=== PATIENT | female | born 1940 | race Caucasian/White ===

== ENCOUNTER 2017-11-22 11:00 | Emergency (ER) | payer MEDICARE ==
[~2017-11-22] VITALS: Ht 165.1 cm; Wt 81.0 kg
[~2017-11-22 11:00] MED LIST: CEPH500 PO; HYDR-2768 PO
[2017-11-22 11:02] VITALS: BP 185/101; PULSE 72; RESP 16; TEMP 97.6; O2SAT 95
[2017-11-22] MEDS ORDERED: HYDR25TA5 PO (11:15)
[2017-11-22] MEDS ORDERED: SODIUM CHLORIDE 0.9% FLUSH 10 ML FLUSH IV FLUSH PRN (11:45)
[2017-11-22 12:03] VITALS: RESP 16; O2SAT 98
[2017-11-22 12:05] LABS: AUTOMATED NEUTROPHIL # 3.7 TH/MM3 (1.8-7.7); BASOPHIL % 0.7 % (0.0-2.0); EOSINOPHIL # 0.4 TH/MM3 (0-0.4); EOSINOPHIL % 6.8 % (0.0-4.0); HEMATOCRIT 44.4 % (35.0-46.0); HEMOGLOBIN 14.3 GM/DL (11.6-15.3); LYMPH % 21.7 % (9.0-44.0); LYMPHOCYTE # 1.3 TH/MM3 (1.0-4.8); MEAN CELL VOLUME 94.8 FL (80.0-100.0); MEAN CORPUSCULAR HEMOGLOBIN 30.5 PG (27.0-34.0); MEAN CORPUSCULAR HGB CONC 32.2 % (32.0-36.0); MEAN PLATELET VOLUME 7.7 FL (7.0-11.0); MONO % 7.3 % (0.0-8.0); MONOCYTE # 0.4 TH/MM3 (0-0.9); NEUT % 63.5 % (16.0-70.0); PLATELET COUNT 281 TH/MM3 (150-450); RED BLOOD COUNT 4.69 MIL/MM3 (4.00-5.30); RED CELL DISTRIBUTION WIDTH 12.4 % (11.6-17.2); WHITE BLOOD COUNT 5.8 TH/MM3 (4.0-11.0)
--- NOTE | 2017-11-22 12:06 | PD ---
HPI Chief Complaint: Dizziness Time Seen by Provider: 11:12 Travel History International Travel<30 days: No Contact w/Intl Traveler<30days: No Traveled to known affect area: No History of Present Illness HPI pt is a very pleasant 77 y.o female who presents to the ED with a cc of Dizziness. Pt states that she has been having dizziness since last Wednesday. Reports that last Wednesday she took some "caffeine powder" and immediately after started getting a sensation that her surrounding is moving. Her dizziness was initially waxing and waning but is now constant. She went to her PCP several days ago and was given Meclizine. She states that Meclizine has not helped her and has made her vomit X 1. Per , she has also been having difficulty with her balance. Denies any ringing in ear, decrease hearing, palpitations, H/A , nausea, vomiting. States symptoms are intermittent, moderate, so she will mild nausea without vomiting, context as above. History Past Medical History Influenza Vaccination: Yes Social History Alcohol Use: Yes (OCC WINE) Tobacco Use: No (QUIT 16 YRS) Allergies-Medications (Allergen,Severity, Reaction): Coded Allergies: No Known Allergies (Unverified Adverse Reaction, Unknown, 11/22/17) Reported Meds & Prescriptions Reported Meds & Active Scripts Active Valium (Diazepam) 2 Mg Tab 2 Mg PO BID PRN Keflex (Cephalexin) 500 Mg Cap 500 Mg PO Q6H 3 Days Reported Hydrochlorothiazide 25 Mg Tab 25 Mg PO DAILY Review of Systems Except as stated in HPI: all other systems reviewed are Neg Physical Exam Narrative GENERAL: Well-developed well-nourished, no obvious distress peer SKIN: Warm and dry. HEAD: Atraumatic. Normocephalic. EYES: Pupils equal and round. No scleral icterus. No injection or drainage. ENT: No nasal bleeding or discharge. Mucous membranes pink and moist. TMs clear bilaterally. Oropharynx clear moist NECK: Trachea midline. No JVD. CARDIOVASCULAR: Regular rate and rhythm. RESPIRATORY: No accessory muscle use. Clear to auscultation. Breath sounds equal bilaterally. GASTROINTESTINAL: Abdomen soft, non-tender, nondistended. Hepatic and splenic margins not palpable. MUSCULOSKELETAL: Extremities without clubbing, cyanosis, or edema. No obvious deformities. NEUROLOGICAL: Awake and alert. Cranial nerves II through XII are grossly intact and nonfocal, 5 out of 5 strength in all 4 extremities, normal speech, cerebellar testing with [id number] and heel baltazar testing negative, ambulates with an even narrow-base gait. No ataxia observed PSYCHIATRIC: Appropriate mood and affect; insight and judgment normal. Data Data Last Documented VS Vital Signs Date Time Temp Pulse Resp B/P (MAP) Pulse Ox O2 Delivery O2 Flow Rate FiO2 11/22/17 14:56 11/22/17 13:06 68 16 98 Room Air 11/22/17 11:02 97.6 Orders Orders Electrocardiogram (11/22/17 11:43) Complete Blood Count With Diff (11/22/17 11:43) Comprehensive Metabolic Panel (11/22/17 11:43) Prothrombin Time / Inr (Pt) (11/22/17 11:43) Act Partial Throm Time (Ptt) (11/22/17 11:43) Troponin I (11/22/17 11:43) Urinalysis - C+S If Indicated (11/22/17 11:43) Blood Glucose (11/22/17 11:43) Ecg Monitoring (11/22/17 11:43) Iv Access Insert/Monitor (11/22/17 11:43) Oximetry (11/22/17 11:43) Sodium Chloride 0.9% Flush (Ns Flush) (11/22/17 11:45) Mri Brain W/O Contrast (11/22/17 ) Urine Culture (11/22/17 14:24) Ed Discharge Order (11/22/17 14:50) Labs Laboratory Tests Test 11/22/17 11:50 11/22/17 14:24 White Blood Count 5.8 TH/MM3 Red Blood Count 4.69 MIL/MM3 Hemoglobin 14.3 GM/DL Hematocrit 44.4 % Mean Corpuscular Volume 94.8 FL Mean Corpuscular Hemoglobin 30.5 PG Mean Corpuscular Hemoglobin Concent 32.2 % Red Cell Distribution Width 12.4 % Platelet Count 281 TH/MM3 Mean Platelet Volume 7.7 FL Neutrophils (%) (Auto) 63.5 % Lymphocytes (%) (Auto) 21.7 % Monocytes (%) (Auto) 7.3 % Eosinophils (%) (Auto) 6.8 % Basophils (%) (Auto) 0.7 % Neutrophils # (Auto) 3.7 TH/MM3 Lymphocytes # (Auto) 1.3 TH/MM3 Monocytes # (Auto) 0.4 TH/MM3 Eosinophils # (Auto) 0.4 TH/MM3 Basophils # (Auto) 0.0 TH/MM3 CBC Comment DIFF FINAL Differential Comment Prothrombin Time 9.9 SEC Prothromb Time International Ratio 1.0 RATIO Activated Partial Thromboplast Time 26.5 SEC Blood Urea Nitrogen 22 MG/DL Creatinine 0.98 MG/DL Random Glucose 100 MG/DL Total Protein 7.2 GM/DL Albumin 3.3 GM/DL Calcium Level 9.0 MG/DL Alkaline Phosphatase 117 U/L Aspartate Amino Transf (AST/SGOT) 67 U/L Alanine Aminotransferase (ALT/SGPT) 68 U/L Total Bilirubin 1.5 MG/DL Sodium Level 140 MEQ/L Potassium Level 4.5 MEQ/L Chloride Level 103 MEQ/L Carbon Dioxide Level 32.3 MEQ/L Anion Gap 5 MEQ/L Estimat Glomerular Filtration Rate 55 ML/MIN Troponin I LESS THAN 0.02 NG/ML Urine Color YELLOW Urine Turbidity CLEAR Urine pH 7.0 Urine Specific [place] LESS/EQUAL 1.005 Urine Protein NEG mg/dL Urine Glucose (UA) NEG mg/dL Urine Ketones NEG mg/dL Urine Occult Blood NEG Urine Nitrite NEG Urine Bilirubin NEG Urine Urobilinogen 0.2 MG/DL Urine Leukocyte Esterase SMALL Urine RBC 0-3 /hpf Urine WBC 9-14 /hpf Urine Squamous Epithelial Cells 6-8 /hpf Urine Bacteria FEW /hpf Microscopic Urinalysis Comment CULTURE INDICATED MDM Medical Decision Making Medical Screen Exam Complete: Yes Emergency Medical Condition: Yes Differential Diagnosis BPV, Menier's disease, cerebellar ischemia, Intra cranial mass; Arrhythmia, carotid stenosis, Dehydration Narrative Course Patient room to the emergency department, I think her symptoms are more in line with BPPV however she has not had any response to meclizine and at her age I think would benefit from MRI to exclude cerebellar disease. Last 24 hours Impressions Brain MRI 11/22/17 0000 Signed Impressions: CONCLUSION: 1. Mild chronic changes with some periventricular and scattered deep white mat ter tract small vessel ischemic demyelination. 2. Nothing acute. Patient also has minimal evidence for urinary tract infection, discussed symptomatic management return to ED criteria follow-up with a primary care physician. She verbalized understanding and agreement. She was offered a small prescription for Valium and she is flying in the next few weeks and wanted to make sure it was okay for her to do so. Discussed the addictive nature of this medication and that will make her very drowsy. Diagnosis Primary Impression: BPPV (benign paroxysmal positional vertigo) Qualified Codes: H81.10 - Benign paroxysmal vertigo, unspecified ear Additional Impression: UTI (urinary tract infection) Qualified Codes: N39.0 - Urinary tract infection, site not specified Med/Other Pt SpecificInfo: Prescription(s) given Scripts Diazepam (Valium) 2 Mg Tab 2 MG PO BID Y for VERTIGO, #12 TAB 0 Refills Prov: Jaret Rivera MD 11/22/17 Cephalexin (Keflex) 500 Mg Cap 500 MG PO Q6H for Infection for 3 Days, #12 CAP 0 Refills Prov: Jaret Rivera MD 11/22/17 Disposition: 01 DISCHARGE HOME Condition: Stable Jaret Rivera MD Nov 22, 2017 12:06
[2017-11-22 12:13] LABS: CHLORIDE 103 MEQ/L (98-107); SODIUM (NA) 140 MEQ/L (136-145)
[2017-11-22 12:17] LABS: ALBUMIN 3.3 GM/DL (3.4-5.0); BICARBONATE 32.3 MEQ/L (21.0-32.0); BLOOD UREA NITROGEN 22 MG/DL (7-18); GLUCOSE,RANDOM 100 MG/DL (74-106)
[2017-11-22 12:18] LABS: PROTHROMBIN TIME - PATIENT 9.9 SEC (9.8-11.6)
[2017-11-22 12:20] LABS: ALT (GPT) 68 U/L (10-53); AST (GOT) 67 U/L (15-37); CREATININE 0.98 MG/DL (0.50-1.00); GLOMERULAR FILTRATION RATE 55 ML/MIN (>89)
[2017-11-22 12:22] LABS: TOTAL BILIRUBIN ADULT 1.5 MG/DL (0.2-1.0); TOTAL PROTEIN 7.2 GM/DL (6.4-8.2)
[2017-11-22 12:23] LABS: ALKALINE PHOSPHATASE 117 U/L (45-117)
[2017-11-22 12:25] LABS: TROPONIN I LESS THAN 0.02 NG/ML (0.02-0.05)
[2017-11-22 13:06] VITALS: BP 146/88; PULSE 68; RESP 16; O2SAT 98
--- NOTE | 2017-11-22 13:52 | RADRPT ---
EXAM DATE: 11/22/2017 1:47 PM EDT AGE/SEX: 77 years / Female INDICATIONS: CVA. Vertigo. CLINICAL DATA: This is the patient's initial encounter. Patient reports that signs and symptoms have been present for 4 - 6 days and indicates a pain score of 0/10. MEDICAL/SURGICAL HISTORY: Hypertension. Chronic obstructive pulmonary disease. Tonsillectomy. Inguinal hernia repair. COMPARISON: No prior [facility] exams available for comparison. TECHNIQUE: Multiplanar, multisequence examination of the brain was performed without contrast. FINDINGS: Cerebrum: The ventricles are normal for age. No evidence of midline shift, mass lesion, hemorrhage or acute infarction. No extraaxial fluid collections are seen. The pituitary gland and suprasellar cistern are normal in configuration. White Matter: Minimal periventricular and scattered deep white matter tract areas of punctate small vessel ischemic demyelination. Posterior Fossa: The cerebellum and brainstem are intact. The 4th ventricle is midline. The cerebel lopontine angle is unremarkable. The cerebellar tonsils are normal in position. Diffusion Imaging: No focal areas of restricted diffusion are seen. No evidence of acute infarction . Extracranial: The visualized portions of the orbits and paranasal sinuses are unremarkable. CONCLUSION: 1. Mild chronic changes with some periventricular and scattered deep white matter tract small vessel ischemic demyelination. 2. Nothing acute. Electronically signed by: Golden Mendoza MD 11/22/2017 1:51 PM EDT
[2017-11-22 14:28] LABS: BILIRUBIN, URINE NEG (NEG); BLOOD, URINE NEG (NEG); GLUCOSE,URINE NEG (NEG); KETONE, URINE NEG (NEG); NITRITE,URINE NEG (NEG); URINE COLOR YELLOW (YELLW/STRAW); URINE LEUKOCYTE ESTERASE SMALL (NEG)
[2017-11-22 14:35] LABS: BACTERIA, URINE FEW /hpf; RBC, URINE 0-3 /hpf (0-3)
[2017-11-22] MEDS ORDERED: CEPH-460 PO (14:48)
[2017-11-22] MEDS ORDERED: DIAZ2 PO (14:48)
--- NOTE | 2017-11-23 15:26 | EKG ---
Date Performed: 11/22/2017 Time Performed: 12:18:28 PTAGE: 77 years EKG: SINUS BRADYCARDIA POSSIBLE ANTERIOR MYOCARDIAL INFARCTION ABNORMAL ECG NO PREVIOUS TRACING DOCTOR: Hansa Kim Interpretating Date/Time 11/23/2017 15:25:27
== END 2017-11-22 15:06 | disposition home or self-care (01) ==
LOC: PHED 11:00
DX: H81.10 Benign paroxysmal vertigo, unspecified ear (principal); N39.0 Urinary tract infection, site not specified; R94.31 Abnormal electrocardiogram [ECG] [EKG]; R00.1 Bradycardia, unspecified
CPT/HCPCS: 70551; 80053; 81001; 84484; 85025; 85610; 85730; 87086; 93005; 99285